=== PATIENT | female | born 1965 | race Caucasian/White ===

== ENCOUNTER 2019-11-11 | Emergency (ER) | payer OTHER ==
[2019-11-11] MEDS ORDERED: MEDDOSEPAK PO (10:48)
[2019-11-11] MEDS ORDERED: TRAMADOL HYDROC50 MG PO (10:48)
== END 2019-11-11 11:00 | disposition home or self-care (01) | DRG 563 ==
DX: S43.499A Other sprain of unspecified shoulder joint, initial encounter (principal); X50.0XXA Overexertion from strenuous movement or load, initial encounter; M19.011 Primary osteoarthritis, right shoulder; M25.511 Pain in right shoulder